=== PATIENT | male | born 1995 | race Caucasian/White ===

== ENCOUNTER 2024-01-21 21:05 | Inpatient (IN) | payer BC ==
[~2024-01-21] VITALS: Ht 188 cm; Wt 97.5 kg
[2024-01-21] MEDS ORDERED: ONDANSETRON ODT 4 MG TAB.RAPDIS ONE (21:09)
[2024-01-21] MEDS: ONDANSETRON ODT 4 MG TAB.RAPDIS SL ONE (21:10)
[2024-01-21] MEDS ORDERED: LORAZEPAM 2 MG/1 ML VIAL ONE (21:29)
[2024-01-21] MEDS: IV NS 1000 ML 1,000 ML IV ONE (21:41)
[2024-01-21] MEDS: LORAZEPAM 2 MG/1 ML VIAL IV ONE (21:41)
[2024-01-21 21:44] LABS: BASOPHILS # (AUTO) 0.1 K/UL (0.0-0.2); BASOPHILS % (AUTO) 0.4 % (0.0-2.0); EOSINOPHILS % (AUTO) 0.3 % (0.0-7.0); HEMOGLOBIN 16.8 g/dL (12.5-16.3); LYMPHOCYTES # (AUTO) 1.3 K/uL (0.8-4.8); LYMPHOCYTES % (AUTO) 10.6 % (20.5-51.5); MEAN CORPUSCULAR HEMOGLOBIN 29.9 uug (23.8-33.4); MEAN CORPUSCULAR HGB CONC 35 g/dL (32.5-36.3); MEAN CORPUSCULAR VOLUME 85.8 fL (73.0-96.2); MONOCYTES # (AUTO) 1.6 K/uL (0.1-1.30); MONOCYTES % (AUTO) 13.4 % (0.0-11.0); NEUTROPHILS % (AUTO) 75.3 % (38.5-71.5); PLATELET COUNT (AUTO) 297 K/uL (152-348); RED CELL DISTRIBUTION WIDTH 14.5 % (12.1-16.2); WHITE BLOOD COUNT (AUTO) 11.9 K/uL (3.6-10.2)
[2024-01-21 21:45] LABS: DIFFERENTIAL COMMENT 1
[2024-01-21 22:16] LABS: POTASSIUM 4.9 mmol/L (3.5-5.1)
[2024-01-21 22:22] LABS: ALBUMIN 5.3 g/dL (3.4-5.0); BILIRUBIN,TOTAL 3.2 mg/dL (0.2-1.0); MAGNESIUM 1.9 mg/dL (1.8-2.4); TOTAL PROTEIN, SERUM 9.2 g/dL (6.4-8.2)
[2024-01-21] MEDS: DILTIAZEM HCL 25 MG IV IV ONE ×2 (22:55→23:03)
[2024-01-21] MEDS ORDERED: MAGNESIUM SULFATE/D5W 200 ML ONE (23:16)
[2024-01-21] MEDS: MAGNESIUM SULFATE/D5W 100 ML IV SCH (23:21)
[2024-01-21 23:37] LABS: ACETONE, SERUM SMALL (NEGATIVE); LACTIC ACID 2.7 mmol/L (0.4-2.0)
[2024-01-21] MEDS ORDERED: DILTIAZEM HCL 25 MG IV ONE (23:57)
[2024-01-22] VITALS (24 sets, daily range): BP systolic 101–125; BP diastolic 63–91; TEMP 97.5–98.6; O2SAT 97–100
[2024-01-22] MEDS: IV NS 1000 ML 1,000 ML IV ONE (00:04)
[2024-01-22] MEDS: DILTIAZEM HCL 25 MG IV IV ONE (00:04)
[2024-01-22] MEDS ORDERED: DILTIAZEM HCL IV 125 MG in IV NORMAL SALINE 100 ML IV PRN ×2 (00:15→00:45)
[2024-01-22] MEDS ORDERED: DILTIAZEM HCL 50 MG IV ONE (00:19)
[2024-01-22] MEDS ORDERED: MAGNESIUM HYDROXIDE 30 ML LIQUID UDC PO PRN (00:45)
[2024-01-22] MEDS ORDERED: ACETAMINOPHEN 325 MG TABLET PO PRN (00:45)
[2024-01-22] MEDS ORDERED: ONDANSETRON 4 MG/2 ML VIAL IV PRN (00:45)
[2024-01-22] MEDS: DILTIAZEM HCL IV 125 MG in IV NORMAL SALINE 100 ML IV PRN (00:49)
[2024-01-22] MEDS ORDERED: DILTIAZEM HCL IV 125 MG in IV NORMAL SALINE 100 ML IV SCH ×2 (01:00→05:00)
[2024-01-22] MEDS: IV NS 1000 ML 1,000 ML IV SCH (02:16)
[2024-01-22 03:53] LABS: BILIRUBIN,DIRECT 0.5 mg/dL (0.0-0.2); TOTAL PROTEIN, SERUM 8.5 g/dL (6.4-8.2)
[2024-01-22] MEDS ORDERED: METOPROLOL TARTRATE 5 MG/5 ML VIAL IVP ONE (05:15)
[2024-01-22] MEDS: METOPROLOL TARTRATE 5 MG/5 ML VIAL IVP ONE (05:24)
[2024-01-22] MEDS ORDERED: LIDOCAINE VISCUS 2% 15 ML UDC ONE (05:46)
[2024-01-22] MEDS: LIDOCAINE VISCUS 2% 15 ML UDC MM ONE (05:50)
[2024-01-22] MEDS: MAG HYDROX/AL HYDROX/SIMETH 30 ML LIQUID UDC PO PRN (05:50)
[2024-01-22 09:25] LABS: *AMPHETAMINE, URINE NEGATIVE (NEGATIVE); *BARBITURATE, URINE NEGATIVE (NEGATIVE); *BENZODIAZEPINE, URINE NEGATIVE (NEGATIVE); *CANNABINOID, URINE NEGATIVE (NEGATIVE); *COCCAINE, URINE NEGATIVE (NEGATIVE); *OPIATE, URINE NEGATIVE (NEGATIVE); *PHENCYCLIDINE SCREEN,URINE NEGATIVE (NEGATIVE); FENTANYL, URINE NEGATIVE (NEGATIVE)
[2024-01-22] MEDS: PANTOPRAZOLE SODIUM 40 MG VIAL IV SCH (09:37)
[2024-01-22] MEDS: CHLORDIAZEPOXIDE HCL 25 MG CAPSULE PO SCH (09:37)
[2024-01-22] MEDS: ASPIRIN 81 MG TAB.CHEW PO SCH (09:37)
[2024-01-22] MEDS: AMIODARONE HCL IV 150 MG in IV DEXTROSE 5% 100 ML IV ONE (09:47)
[2024-01-22] MEDS: IV NS 1000 ML 1,000 ML IV PRN (10:04)
[2024-01-22] MEDS: AMIODARONE HCL IV 450 MG in IV DEXTROSE 5% 250 ML IV PRN (10:04)
[2024-01-22] MEDS: ENOXAPARIN SODIUM 100 MG/ML DISP.SYRIN SQ ONE (10:41)
[2024-01-22] MEDS: RIVAROXABAN 10 MG TABLET PO SCH (17:49)
[2024-01-23] VITALS (13 sets, daily range): BP systolic 109–128; BP diastolic 75–98; TEMP 97.6–98.2; O2SAT 97–100
[2024-01-23] MEDS ORDERED: AMIODARONE HCL 150 MG/3 ML VIAL IV ONE (05:31)
[2024-01-23 06:22] LABS: BASOPHILS % (AUTO) 0.6 % (0.0-2.0); EOSINOPHILS # (AUTO) 0.2 K/uL (0.0-0.7); EOSINOPHILS % (AUTO) 4.8 % (0.0-7.0); HEMATOCRIT 41.7 % (36.7-47.1); HEMOGLOBIN 14.4 g/dL (12.5-16.3); LYMPHOCYTES % (AUTO) 20.8 % (20.5-51.5); MEAN CORPUSCULAR HEMOGLOBIN 30.3 uug (23.8-33.4); MEAN CORPUSCULAR HGB CONC 35 g/dL (32.5-36.3); MEAN CORPUSCULAR VOLUME 87.7 fL (73.0-96.2); MONOCYTES # (AUTO) 0.6 K/uL (0.1-1.30); MONOCYTES % (AUTO) 11.8 % (0.0-11.0); PLATELET COUNT (AUTO) 156 K/uL (152-348); RED BLOOD CELL COUNT(AUTO) 4.75 MIL/uL (4.06-5.63); RED CELL DISTRIBUTION WIDTH 14.2 % (12.1-16.2); WHITE BLOOD COUNT (AUTO) 4.8 K/uL (3.6-10.2)
[2024-01-23 06:42] LABS: CALCIUM 8.2 mg/dL (8.5-10.1); CARBON DIOXIDE 23 mmol/L (21-32); CHLORIDE 107 mmol/L (98-107); CREATININE 0.7 mg/dL (0.6-1.3); GLUCOSE 103 mg/dL (74-106); PHOSPHOROUS 1.5 mg/dL (2.5-4.9); POTASSIUM 3.8 mmol/L (3.5-5.1); SODIUM SERUM 140 mmol/L (136-145); UREA NITROGEN, BLOOD 3 mg/dL (7-18)
[2024-01-23 06:45] LABS: DIFFERENTIAL COMMENT 1
[2024-01-23] MEDS: POTASSIUM PHOSPHATE MM 15 MMOL in IV NORMAL SALINE 250 ML IV ONE (09:44)
[2024-01-23] MEDS ORDERED: MULT-1045 PO (12:06)
[2024-01-23] MEDS ORDERED: RIVA15TA PO (12:06)
[2024-01-23] MEDS ORDERED: HYDR50CA PO (12:06)
== END 2024-01-23 14:30 | disposition home or self-care (01) | DRG 309 ==
LOC: ER 21:06 → TELE-TD3 01-22 01:14 → CCU 01-22 06:00
DX: I48.0 Paroxysmal atrial fibrillation (principal); E87.20 Acidosis, unspecified; F41.1 Generalized anxiety disorder; E66.9 Obesity, unspecified; Z68.27 Body mass index [BMI] 27.0-27.9, adult; E83.39 Other disorders of phosphorus metabolism; E86.0 Dehydration; F10.129 Alcohol abuse with intoxication, unspecified; F43.12 Post-traumatic stress disorder, chronic; X58.XXXS Exposure to other specified factors, sequela; Z62.810 Personal history of physical and sexual abuse in childhood; Z91.011 Allergy to milk products; R11.2 Nausea with vomiting, unspecified
CPT/HCPCS: 36415; 71045; 83605; 83690; 83735; 84100; 84443; 84484; 85025; 85610; 85730; 93005; 93307; A4606; A4663; C9113; G0378; J0282; J1650; J2060; J3475; J3490; J7040; J7050; Q0162

== ENCOUNTER 2024-02-09 23:17 | Inpatient (IN) | payer BC ==
[~2024-02-09] VITALS: Ht 188 cm; Wt 99.8 kg
[~2024-02-09 23:17] MED LIST: HYDR50CA PO; MULT-1045 PO; RIVA15TA PO
[2024-02-10 00:35] LABS: BASOPHILS # (AUTO) 0.1 K/UL (0.0-0.2); BASOPHILS % (AUTO) 0.6 % (0.0-2.0); EOSINOPHILS % (AUTO) 0.1 % (0.0-7.0); HEMATOCRIT 52.5 % (36.7-47.1); HEMOGLOBIN 17.6 g/dL (12.5-16.3); LYMPHOCYTES % (AUTO) 9.8 % (20.5-51.5); MEAN CORPUSCULAR HEMOGLOBIN 29.5 uug (23.8-33.4); MEAN CORPUSCULAR HGB CONC 33 g/dL (32.5-36.3); MEAN CORPUSCULAR VOLUME 88.1 fL (73.0-96.2); MONOCYTES # (AUTO) 0.4 K/uL (0.1-1.30); MONOCYTES % (AUTO) 3.6 % (0.0-11.0); NEUTROPHILS # (AUTO) 9.1 K/uL (1.8-8.9); NEUTROPHILS % (AUTO) 85.9 % (38.5-71.5); PLATELET COUNT (AUTO) 367 K/uL (152-348); RED BLOOD CELL COUNT(AUTO) 5.96 MIL/uL (4.06-5.63); RED CELL DISTRIBUTION WIDTH 14.4 % (12.1-16.2); WHITE BLOOD COUNT (AUTO) 10.6 K/uL (3.6-10.2)
[2024-02-10] MEDS ORDERED: ONDANSETRON 4 MG/2 ML VIAL ONE ×2 (00:41→05:24)
[2024-02-10 00:44] LABS: DIFFERENTIAL COMMENT 1
[2024-02-10 00:45] LABS: CARBON DIOXIDE 21 mmol/L (21-32); CHLORIDE 98 mmol/L (98-107); GLUCOSE 86 mg/dL (74-106); POTASSIUM 4.4 mmol/L (3.5-5.1); SODIUM SERUM 140 mmol/L (136-145); UREA NITROGEN, BLOOD 12 mg/dL (7-18)
[2024-02-10 00:58] LABS: ALANINE AMINOTRANSFERASE 62 U/L (16-63); ALBUMIN 5.2 g/dL (3.4-5.0); ALKALINE PHOSPHATASE 120 U/L (50-136); ASPARTATE AMINOTRANSFERASE 54 U/L (15-37); BILIRUBIN,TOTAL 1.4 mg/dL (0.2-1.0); LIPASE 31 U/L (16-77); TOTAL PROTEIN, SERUM 9.1 g/dL (6.4-8.2)
[2024-02-10 00:59] LABS: NT-PRO BNP < 5 pg/mL (0-125)
[2024-02-10] MEDS: ONDANSETRON 4 MG/2 ML VIAL IV ONE (01:00)
[2024-02-10] MEDS: IV NS 1000 ML 1,000 ML IV ONE (01:00)
[2024-02-10 01:16] LABS: ETHANOL 276 MG/DL (0-10)
[2024-02-10] MEDS: LORAZEPAM 0.5 MG TABLET PO ONE (01:56)
[2024-02-10] MEDS ORDERED: LORAZEPAM 1 MG TABLET ONE (01:56)
[2024-02-10] MEDS: IV NS 1000 ML 1,000 ML IV PRN (04:00)
[2024-02-10] MEDS ORDERED: ACETAMINOPHEN 325 MG TABLET PO PRN (04:00)
[2024-02-10] MEDS: MAGNESIUM HYDROXIDE 30 ML LIQUID UDC PO PRN (04:30)
[2024-02-10] MEDS ORDERED: MAGNESIUM HYDROXIDE 30 ML LIQUID UDC ONE (04:32)
[2024-02-10] MEDS: THIAMINE HCL 100 MG TABLET PO SCH (04:44)
[2024-02-10] MEDS: CHLORDIAZEPOXIDE HCL 25 MG CAPSULE PO SCH ×2 (04:44→13:34)
[2024-02-10 05:11] LABS: *BILIRUBIN,URIN NEGATIVE (NEGATIVE); *BLOOD, URINE NEGATIVE (NEGATIVE); *CLARITY,URINE CLEAR (CLEAR); *COLOR,URINE LIGHT YELLOW (YELLOW); *KETONES,URINE 4+ (NEGATIVE); *PROTEIN,URINE 1+ (NEGATIVE); *UROBILINOGEN,URINE 0.2 E.U./dl (NORMAL); LEUKOCYTE ESTERASE ,URINE NEGATIVE (NEGATIVE); NITRITE, URINE NEGATIVE (NEGATIVE); PH,URINE 5.5 (5.0-8.0); UGLUCOSE NEGATIVE (NEGATIVE)
[2024-02-10] MEDS ORDERED: LORAZEPAM 2 MG/1 ML VIAL ONE (05:25)
[2024-02-10 05:27] LABS: *AMPHETAMINE, URINE NEGATIVE (NEGATIVE); *BARBITURATE, URINE NEGATIVE (NEGATIVE); *BENZODIAZEPINE, URINE NEGATIVE (NEGATIVE); *CANNABINOID, URINE NEGATIVE (NEGATIVE); *COCCAINE, URINE NEGATIVE (NEGATIVE); *OPIATE, URINE NEGATIVE (NEGATIVE); *PHENCYCLIDINE SCREEN,URINE NEGATIVE (NEGATIVE)
[2024-02-10 05:29] LABS: FENTANYL, URINE NEGATIVE (NEGATIVE)
[2024-02-10] MEDS: LORAZEPAM 2 MG/1 ML VIAL IV PRN (05:32)
[2024-02-10] MEDS: ONDANSETRON 4 MG/2 ML VIAL IV PRN (05:32)
[2024-02-10 05:41] LABS: BACTERIA,URINE RARE /HPF (NONE SEEN); RBC,URINE 0-3 /HPF (0-3); SQUAMOUS EPITHELIAL CELL,UR NONE SEEN /HPF (NONE SEEN); WBC,URINE 0-3 /HPF (0-3)
[2024-02-10] MEDS ORDERED: PANTOPRAZOLE SODIUM 40 MG VIAL ONE (05:41)
[2024-02-10] MEDS: PANTOPRAZOLE SODIUM 40 MG VIAL IV SCH (05:51)
[2024-02-10 07:45] VITALS: BP 118/71; TEMP 98.4; O2SAT 94
[2024-02-10] MEDS ORDERED: MULTIVITAMINS,THERAPEUTIC TABLET PO SCH (09:00)
[2024-02-10] MEDS ORDERED: THIAMINE HCL 100 MG TABLET PO SCH (09:00)
[2024-02-10] MEDS: MULTIVITAMINS,THERAPEUTIC TABLET PO SCH (09:10)
[2024-02-10] MEDS: FOLIC ACID 1 MG TABLET PO SCH (09:10)
[2024-02-10 12:36] VITALS: BP 129/75; TEMP 98.5; O2SAT 98
[2024-02-10 15:40] VITALS: BP 112/73; TEMP 97.9; O2SAT 96
[2024-02-10] MEDS: RIVAROXABAN 10 MG TABLET PO SCH (16:19)
[2024-02-10] MEDS ORDERED: RIVAROXABAN 15 MG TABLET PO SCH ×2 (17:00)
[2024-02-10 20:00] VITALS: BP 118/74; TEMP 98.1; O2SAT 97
[2024-02-11] VITALS: BP 116/85; TEMP 99.3; O2SAT 96
[2024-02-11 04:42] VITALS: BP 115/72; TEMP 97.5; O2SAT 98
[2024-02-11 07:03] LABS: BASOPHILS % (AUTO) 0.8 % (0.0-2.0); EOSINOPHILS # (AUTO) 0.1 K/uL (0.0-0.7); EOSINOPHILS % (AUTO) 3.9 % (0.0-7.0); HEMATOCRIT 42.6 % (36.7-47.1); HEMOGLOBIN 14.5 g/dL (12.5-16.3); LYMPHOCYTES % (AUTO) 27.9 % (20.5-51.5); MEAN CORPUSCULAR HEMOGLOBIN 30.3 uug (23.8-33.4); MEAN CORPUSCULAR HGB CONC 34 g/dL (32.5-36.3); MEAN CORPUSCULAR VOLUME 89.1 fL (73.0-96.2); MONOCYTES # (AUTO) 0.4 K/uL (0.1-1.30); MONOCYTES % (AUTO) 11.6 % (0.0-11.0); NEUTROPHILS # (AUTO) 2.1 K/uL (1.8-8.9); NEUTROPHILS % (AUTO) 55.8 % (38.5-71.5); PLATELET COUNT (AUTO) 182 K/uL (152-348); RED BLOOD CELL COUNT(AUTO) 4.78 MIL/uL (4.06-5.63); RED CELL DISTRIBUTION WIDTH 13.9 % (12.1-16.2); WHITE BLOOD COUNT (AUTO) 3.7 K/uL (3.6-10.2)
[2024-02-11 07:09] LABS: DIFFERENTIAL COMMENT 1
[2024-02-11 07:12] LABS: CALCIUM 8.5 mg/dL (8.5-10.1); CARBON DIOXIDE 27 mmol/L (21-32); CHLORIDE 107 mmol/L (98-107); CREATININE 0.7 mg/dL (0.6-1.3); GLUCOSE 79 mg/dL (74-106); MAGNESIUM 1.9 mg/dL (1.8-2.4); PHOSPHOROUS 2.2 mg/dL (2.5-4.9); POTASSIUM 3.9 mmol/L (3.5-5.1); SODIUM SERUM 143 mmol/L (136-145); UREA NITROGEN, BLOOD 7 mg/dL (7-18)
[2024-02-11 07:35] VITALS: BP 115/66; TEMP 97.9; O2SAT 97
[2024-02-11] MEDS: THIAMINE HCL 100 MG TABLET PO SCH (08:50)
[2024-02-11] MEDS: PANTOPRAZOLE SODIUM 40 MG VIAL IV SCH (08:50)
[2024-02-11] MEDS: NEUTRA PHOS PACKET PO ONE (09:58)
[2024-02-11 11:34] VITALS: BP 118/73; TEMP 98.2; O2SAT 97
[2024-02-11 15:39] VITALS: BP 129/76; TEMP 98.6; O2SAT 98
[2024-02-11 20:00] VITALS: BP 119/74; TEMP 97.9; O2SAT 98
[2024-02-12] VITALS: BP 107/65; TEMP 97.9; O2SAT 97
[2024-02-12 04:00] VITALS: BP 101/64; TEMP 98.1; O2SAT 97
[2024-02-12 06:26] LABS: BASOPHILS % (AUTO) 1.1 % (0.0-2.0); EOSINOPHILS # (AUTO) 0.2 K/uL (0.0-0.7); HEMATOCRIT 42.2 % (36.7-47.1); LYMPHOCYTES % (AUTO) 24.5 % (20.5-51.5); MEAN CORPUSCULAR HEMOGLOBIN 29.6 uug (23.8-33.4); MEAN CORPUSCULAR HGB CONC 33 g/dL (32.5-36.3); MONOCYTES # (AUTO) 0.4 K/uL (0.1-1.30); NEUTROPHILS # (AUTO) 2.4 K/uL (1.8-8.9); NEUTROPHILS % (AUTO) 60.4 % (38.5-71.5); PLATELET COUNT (AUTO) 176 K/uL (152-348); RED BLOOD CELL COUNT(AUTO) 4.74 MIL/uL (4.06-5.63); RED CELL DISTRIBUTION WIDTH 14.2 % (12.1-16.2)
[2024-02-12 06:41] LABS: CALCIUM 8.6 mg/dL (8.5-10.1); CARBON DIOXIDE 26 mmol/L (21-32); CHLORIDE 109 mmol/L (98-107); CREATININE 0.7 mg/dL (0.6-1.3); GLUCOSE 89 mg/dL (74-106); MAGNESIUM 1.8 mg/dL (1.8-2.4); PHOSPHOROUS 3.6 mg/dL (2.5-4.9); POTASSIUM 3.5 mmol/L (3.5-5.1); SODIUM SERUM 145 mmol/L (136-145); UREA NITROGEN, BLOOD 6 mg/dL (7-18)
[2024-02-12 06:55] LABS: DIFFERENTIAL COMMENT 1
[2024-02-12 07:37] VITALS: BP 110/64; TEMP 97.6; O2SAT 98
[2024-02-12] MEDS: CHLORDIAZEPOXIDE HCL 25 MG CAPSULE PO ONE (10:12)
[2024-02-12 11:29] VITALS: BP 109/68; TEMP 98.2; O2SAT 98
== END 2024-02-12 13:25 | disposition home or self-care (01) | DRG 897 ==
LOC: ER 23:20 → TELE3 02-10 04:00
PROVIDERS: ATTEND Nurse Practitioner Acute Care
DX: F10.239 Alcohol dependence with withdrawal, unspecified (principal); F10.229 Alcohol dependence with intoxication, unspecified; Y90.8 Blood alcohol level of 240 mg/100 ml or more; D63.8 Anemia in other chronic diseases classified elsewhere; R79.89 Other specified abnormal findings of blood chemistry; G25.2 Other specified forms of tremor; F41.9 Anxiety disorder, unspecified; E86.0 Dehydration; F19.10 Other psychoactive substance abuse, uncomplicated; Z79.01 Long term (current) use of anticoagulants; I48.91 Unspecified atrial fibrillation
CPT/HCPCS: 36415; 71045; 83690; 83735; 84100; 84484; 85025; 93005; A4606; A4663; C9113; G0378; G0480; J2060; J2405; J7040